=== PATIENT | female | born 2000 | race Caucasian/White ===

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

== ENCOUNTER 2019-07-16 15:29 | Emergency (ER) | payer MEDICAID ==
[~2019-07-16] VITALS: Ht 154.9 cm; Wt 56.7 kg
[2019-07-16 15:37] VITALS: BP_SYST 135
--- NOTE | 2019-07-16 15:42 | NUR ---
INDERJIT Greene at bedside examining patient.
--- NOTE | 2019-07-16 15:46 | NUR ---
Patient to ER bed 7 to gown for evaluation. Side rails up. Report given to CARLY Rivas.
--- NOTE | 2019-07-16 15:47 | NUR ---
Patient brought in with mother complaining of right ankle pain x 3 days s/p rolling ankle after missing step. Patient reports that she heard a pop and has been limping since. Skin intact, dry and warm. Mild swelling noted. Pain 6/10. No other complaints/injuries per patient or as noted. Will continue to monitor.
--- NOTE | 2019-07-16 15:48 | NUR ---
ER PA Dinh at bedside examining patient.
--- NOTE | 2019-07-16 15:49 | NUR ---
Radiology at bedside
[2019-07-16] MEDS ORDERED: IBUPROFEN 600 MG TABLET PO ONE (16:00)
--- NOTE | 2019-07-16 16:00 | NUR ---
ER PA Dinh at bedside discussing patient result.
[2019-07-16 16:42] VITALS: BP_SYST 128
--- NOTE | 2019-07-16 16:42 | NUR ---
Patient given written and verbal discharge instructions and verbalizes understanding. ER NNEKA MOLINA discussed with patient the results and treatment provided. Patient in stable condition. ID arm band removed. Rx of MOTRIN given. Patient educated on pain management and to follow up with PMD. Pain Scale 0/10 Opportunity for questions provided and answered. Medication side effect fact sheet provided.
== END 2019-07-16 16:42 | disposition home or self-care (01) ==
LOC: SED 15:29
DX: S92.351A Displaced fracture of fifth metatarsal bone, right foot, initial encounter for closed fracture (principal); R03.0 Elevated blood-pressure reading, without diagnosis of hypertension; W10.8XXA Fall (on) (from) other stairs and steps, initial encounter; Y93.89 Activity, other specified; Y92.89 Other specified places as the place of occurrence of the external cause; Y99.8 Other external cause status
CPT/HCPCS: 99283